=== PATIENT | female | born 1990 | race Caucasian/White ===

== ENCOUNTER 2017-10-01 14:22 | Emergency (ER) | payer OTHER ==
--- OUTSIDE RECORDS SUMMARY | 2017-10-01 14:25 | XMS REPORT | Clinical Summary ---
:1990 Author Organization [facility] Address [address] [place] [address] Phone Care Team Providers Name Role Phone Unavailable Primary Care Provider Unavailable Allergies Active Allergy Reactions Severity Noted Date Comments Adhesive 01/26/2017 Naproxen 01/26/2017 Current Medications Prescription Sig. Disp. Refills Start Date End Date Status traMADol (ULTRAM) 50 Take 1 tablet 20 tablet 0 01/26/2017 02/05/2017 mg tablet (50 mg total) by mouth every 6 (six) hours as needed for Pain for up to 10 days. Max Daily Amount: 200 mg LORazepam (ATIVAN) 1 Take 1 tablet (1 20 tablet 0 01/26/2017 02/05/2017 MG tablet mg total) by mouth 3 (three) times daily as needed for Anxiety for up to 10 days. Max Daily Amount: 3 mg Active Problems Not on file Encounters Date Type Specialty Care Team Description 01/26/2017 Emergency Emergency Medicine Geno, Will, DO Anxiety disorder, unspecified type (Primary Dx);Atypical chest pain;Migraine without aura and without status migrainosus, not intractable;Tachycardia after 09/30/2016 Social History Tobacco Use Types Packs/Day Years Used Date Never Smoker Smokeless Tobacco: Never Used Alcohol Use Drinks/Week oz/Week Comments Yes Sex Assigned at Date Recorded Not on file Last Filed Vital Signs Vital Sign Reading Time Taken Blood Pressure 149/96 01/26/2017 2:56 AM DEVELOPMENT ADMINISTRATOR Pulse 103 01/26/2017 2:56 AM DEVELOPMENT ADMINISTRATOR Temperature 36.8 C (98.2 F) 01/26/2017 2:56 AM DEVELOPMENT ADMINISTRATOR Respiratory Rate 18 01/26/2017 2:56 AM DEVELOPMENT ADMINISTRATOR Oxygen Saturation 100% 01/26/2017 2:56 AM DEVELOPMENT ADMINISTRATOR Inhaled Oxygen Concentration - - Weight 136.1 kg (300 lb) 01/26/2017 12:29 AM DEVELOPMENT ADMINISTRATOR Height - - Body Mass Index - - Plan of Treatment Not on file Results ED ECG Interpretation (01/26/2017 6:33 AM) Yannick Woodward DO 01/26/20176:33 AM ECG/EKG Interpretation Date/Time: 01/26/2017 12:36 AM Performed by: YANNICK COOPER Authorized by: YANNICK COOPER The ECG was interpreted by ED physician. This ECG was not compared with previous ECG(s).The ECG is interpreted as sinus tachycardia. Rate is tachycardic. Heart rate is [address] segments normal. T waves normal. Clinical Impression: non-specific ECGECG reviewed and does not meet STEMI criteria. XR chest 2 views (01/26/2017 1:20 AM) Specimen Performing Laboratory [facility] Narrative FINAL REPORT EXAMINATION: 2 VIEW CHEST CLINICAL INDICATION: CHEST PAIN IMPRESSION: No comparison studies are available. No evidence of focal lung consolidation, pulmonary edema or pleural effusion. The heart size is normal. Mediastinal contours are sharp. No evidence of an acute osseous abnormality or pneumothorax. Signed: Connie Betancourt MD Report Verified Date/Time:01/26/2017 01:20:26 Reading Location: [address] Reading Room Procedure Note Interface, External Ris In - 01/26/2017 1:22 AM DEVELOPMENT ADMINISTRATOR FINAL REPORT EXAMINATION: 2 VIEW CHEST CLINICAL INDICATION: CHEST PAIN IMPRESSION: No comparison studies are available. No evidence of focal lung consolidation, pulmonary edema or pleural effusion. The heart size is normal. Mediastinal contours are sharp. No evidence of an acute osseous abnormality or pneumothorax. Signed: Connie Betancourt MD Report Verified Date/Time: 01/26/2017 01:20:26 Reading Location: [address] Reading Room brain without IV contrast (01/26/2017 1:20 AM) Specimen Performing Laboratory [facility] Narrative FINAL REPORT EXAMINATIONNONCONTRAST HEAD CT SCAN CLINICAL HISTORY:Acute headache COMPARISON CT: None EPISODE OF CARE: Initial TECHNIQUE: Axial tomographic images were obtained through the brain from the vertex to the skull base without intravenous contrast. The exam was performed according to our departmental dose optimization program which includes automated exposure control, adjustment of the mA and/or kV according to patient's size and/or use of iterative reconstructive technique. FINDINGS: No evidence of acute intracranial hemorrhage, mass effect, cerebral edema, midline shift, hydrocephalus or abnormal extra-axial fluid collection. The visualized orbits are unremarkable. Mild mucosal thickening and possibly trace fluid are noted in the anterior ethmoid air cells and the frontal sinuses. The visualized sphenoid air cells, maxillary sinuses, tympanic cavities and mastoid air cells are well pneumatized. The mandibular condyles project anatomically. IMPRESSION: No specific evidence of an acute intracranial process. Mild sinus disease, chronicity indeterminate. If there is persistent clinical concern, consider MRI for further evaluation. Signed: Connie Betancourt MD Report Verified Date/Time:01/26/2017 01:23:17 Reading Location: [address] Reading Room Procedure Note Interface, External Ris In - 01/26/2017 1:25 AM DEVELOPMENT ADMINISTRATOR FINAL REPORT EXAMINATION NONCONTRAST HEAD CT SCAN CLINICAL HISTORY:Acute headache COMPARISON CT: None EPISODE OF CARE: Initial TECHNIQUE: Axial tomographic images were obtained through the brain from the vertex to the skull base without intravenous contrast. The exam was performed according to our departmental dose optimization program which includes automated exposure control, adjustment of the mA and/or kV according to patient's size and/or use of iterative reconstructive technique. FINDINGS: No evidence of acute intracranial hemorrhage, mass effect, cerebral edema, midline shift, hydrocephalus or abnormal extra-axial fluid collection. The visualized orbits are unremarkable. Mild mucosal thickening and possibly trace fluid are noted in the anterior ethmoid air cells and the frontal sinuses. The visualized sphenoid air cells, maxillary sinuses, tympanic cavities and mastoid air cells are well pneumatized. The mandibular condyles project anatomically. IMPRESSION: No specific evidence of an acute intracranial process. Mild sinus disease, chronicity indeterminate. If there is persistent clinical concern, consider MRI for further evaluation. Signed: Connie Betancourt MD Report Verified Date/Time: 01/26/2017 01:23:17 Reading Location: [address] Reading Room Rapid Troponin I (01/26/2017 1:05 AM) Component Value Ref Range Rapid Troponin I <0.05 <0.05 ng/mL Specimen Performing Laboratory Blood [facility] [id number] [place] [id number] CBC with platelet count + automated diff (01/26/2017 1:05 AM) Component Value Ref Range WBC 12.4 (H) 4.0 - 10.0 10e3/L RBC 4.78 4.00 - 5.00 10e6/L Hemoglobin 13.8 12.0 - 15.0 g/dL Hematocrit 43.5 36.0 - 45.0 % MCV 91.0 82.0 - 99.0 fL MCH 28.9 27.0 - 33.0 pg MCHC 31.8 (L) 32.0 - 36.0 g/dL RDW 12.5 10.3 - 14.2 % Platelets 366 150 - 430 10e3/L MPV 7.7 6.5 - 10.5 fL % Neutros 66 % % Lymphs 25 % % Monos 6 % % Eos 2 % % Baso 1 % # Neutros 8.13 (H) 1.80 - 8.00 10e3/L # Lymphs 3.08 1.48 - 4.50 10e3/L # Monos 0.77 0.00 - 1.30 10e3/L # Eos 0.30 0.00 - 0.50 10e3/L # Baso 0.10 0.00 - 0.20 10e3/L Specimen Performing Laboratory Blood [facility] [id number] [place] [id number] D-dimer, quantitative (01/26/2017 1:05 AM) Component Value Ref Range D-Dimer, Quant 0.21 <0.50 MG/L FEU Specimen Performing Laboratory Blood [facility] [id number] [place] [id number] Narrative REGARDING D-DIMER RESULTS: Results of this D-Dimer test should always be interpreted in conjunction with the patient's medical history, clinical presentation and other findings. DVT clinical diagnosis should not be based on the results of INNOVANCE D-Dimer alone. CBC with platelet count + automated diff (01/26/2017 1:05 AM) Specimen Performing Laboratory Blood Narrative The following orders were created for panel order CBC with platelet count + automated diff. Procedure Abnormality Status --------- ------ CBC with platelet count ...[[id number]]AbnormalFinal result Please view results for these tests on the individual orders. Basic Metabolic Panel (01/26/2017 1:05 AM) Component Value Ref Range Sodium 141 135 - 148 meq/L Potassium 3.9 3.6 - 5.5 meq/L Chloride 104 98 - 106 meq/L CO2 26 24 - 32 meq/L BUN 11 10 - 26 mg/dL Creatinine 0.94 0.50 - 1.20 mg/dL Glucose 132 (H) 70 - 110 mg/dL Calcium 10.0 8.5 - 10.5 mg/dL EGFR 70Comment: INSUFFICIENT CLINICAL DATA TO CALCULATE mL/min/1.73 sq m ESTIMATED GFR. Specimen Performing Laboratory Blood [facility] [address] [place] [address] ECG 12 lead (01/26/2017 12:36 AM) Specimen Performing Laboratory GE MUSE Narrative Ventricular Rate 110 BPM Atrial Rate 110 BPM P-R Interval 186 ms QRS Duration 84 ms Q-T Interval 304 ms QTC Calculation(Bazett) 411 ms P Wheelwright 69 degrees R Wheelwright 74 degrees T Wheelwright 59 degrees Sinus tachycardia Otherwise normal ECG No previous ECGs available Confirmed by MD CARDOZA JOSEPH P ([id number]) on 01/26/2017 7:45:30 AM Procedure Note Interface, External Ris In - 01/26/2017 7:45 AM DEVELOPMENT ADMINISTRATOR Ventricular Rate 110 BPM Atrial Rate 110 BPM P-R Interval 186 ms QRS Duration 84 ms Q-T Interval 304 ms QTC Calculation(Bazett) 411 ms P Wheelwright 69 degrees R Wheelwright 74 degrees T Wheelwright 59 degrees Sinus tachycardia Otherwise normal ECG No previous ECGs available Confirmed by MD CARDOZA JOSEPH P ([id number]) on 01/26/2017 7:45:30 AM after 09/30/2016
--- OUTSIDE RECORDS SUMMARY | 2017-10-01 14:25 | XMS REPORT ---
:1990 Author Organization [facility] Address [address] [place] [address] Care Team Providers Name Role Phone ALLISON, WILL Unavailable Unavailable Problems This patient has no known problems. Allergies, Adverse Reactions, Alerts This patient has no known allergies or adverse reactions. Medications This patient has no known medications. Results Test Description Test Time Test Comments Text Results Atomic Results Result Comments D-DIMER 2017-01-26 01:32:00 Test Item Value Reference Range Comments D-DIMER QUANTITATIVE (SANJEEV) (test gzck=091) 0.21 MG/L FEU <0.50 REGARDING D-DIMER RESULTS: Results of this D-Dimer test should always be interpreted in conjunction with the patient's medical history, clinical presentation and other findings. DVT clinical diagnosis should not be based on the results of INNOVANCE D-Dimer alone.RAPID TROPONIN [id number] 01:30:00 Test Item Value Reference Range Comments RAPID TROPONIN I (MARYBELAKER) (test voyn=1424) < ng/mL <0.05 CT, BRAIN, WITHOUT [id number] 01:23:00FINAL REPORT EXAMINATION NONCONTRAST HEAD CT SCAN CLINICAL HISTORY:Acute headache COMPARISON CT: None EPISODE OF CARE: Initial TECHNIQUE: Axial tomographic images were obtained through the brain from the vertex to the skull base without intravenous contrast. The exam was performed according to our departmental dose optimization program which includes automated exposure control , adjustment of the mA and/or kV according to patient's size and/or use of iterative reconstructivetechnique. FINDINGS: No evidence of acute intracranial hemorrhage, [...] MRI for further evaluation. Signed: Connie Betancourt Verified Date/Time: 01/26 01:23:17 Reading Location: [address] Reading Room BASIC METABOLIC [id number] 01:21:00 Test Item Value Reference Range Comments SODIUM (BEAKER) (test 141 meq/L 135-148 bbif=023) POTASSIUM (BEAKER) (test 3.9 meq/L 3.6-5.5 gynz=215) CHLORIDE (BEAKER) (test 104 meq/L 98-106 xsve=716) CO2 (BEAKER) (test 26 meq/L 24-32 extg=462) BLOOD UREA NITROGEN 11 mg/dL 10-26 (BEAKER) (test pgqt=983) CREATININE (BEAKER) 0.94 mg/dL 0.50-1.20 (test pxko=304) GLUCOSE RANDOM (BEAKER) 132 mg/dL 70-110 (test dghy=490) CALCIUM (BEAKER) (test 10.0 mg/dL 8.5-10.5 jfvn=624) EGFR (BEAKER) (test 70 mL/min/1.73 sq m INSUFFICIENT CLINICAL DATA hgsk=0430) TO CALCULATE ESTIMATED GFR. RAD, CHEST, 2 [id number] 01:20:00Reason for exam:->HEADACHEReason for exam:->DIZZINESSReason for exam:->CHEST PAINReason forexam:-> HYPERTENSIONShould this be performed at the bedside?->NoIs the patient ?->NoFINAL REPORT EXAMINATION: 2 VIEW CHEST CLINICAL INDICATION: CHEST PAIN IMPRESSION: No comparison studies are available. No evidence of focal lung consolidation, pulmonary edema or pleural effusion. The heart size is normal. Mediastinal contours are sharp. No evidence of an acuteosseous abnormality or pneumothorax. Signed: Connie Betancourt Verified Date/Time: 01/26/2017 01:20:26 Reading Location: [address] Reading Room Electronically signed by: CONNIE GIRON M.D. on 02/2017 01:20 AMCBC W/PLT COUNT & AUTO [id number] 01:18:00 Test Item Value Reference Range Comments WHITE BLOOD CELL COUNT (BEAKER) (test hgjo=960) 12.4 10e3/ L 4.0-10.0 RED BLOOD CELL COUNT (BEAKER) (test gtjq=861) 4.78 10e6/ L 4.00-5.00 HEMOGLOBIN (BEAKER) (test fvmo=117) 13.8 g/dL 12.0-15.0 HEMATOCRIT (BEAKER) (test gjea=096) 43.5 % 36.0-45.0 MEAN CORPUSCULAR VOLUME (BEAKER) (test 91.0 fL 82.0-99.0 revc=919) MEAN CORPUSCULAR HEMOGLOBIN (BEAKER) (test 28.9 pg 27.0-33.0 unyn=544) MEAN CORPUSCULAR HEMOGLOBIN CONC (BEAKER) (test 31.8 g/dL 32.0-36.0 vkuf=715) RED CELL DISTRIBUTION WIDTH (BEAKER) (test 12.5 % 10.3-14.2 blwe=663) PLATELET COUNT (BEAKER) (test dhcs=699) 366 10e3/ L 150-430 MEAN PLATELET VOLUME (BEAKER) (test edcu=498) 7.7 fL 6.5-10.5 NEUTROPHILS RELATIVE PERCENT (BEAKER) (test 66 % cffv=947) LYMPHOCYTES RELATIVE PERCENT (BEAKER) (test 25 % ybdo=864) MONOCYTES RELATIVE PERCENT (BEAKER) (test 6 % wguc=618) EOSINOPHILS RELATIVE PERCENT (BEAKER) (test 2 % butx=290) BASOPHILS RELATIVE PERCENT (BEAKER) (test 1 % zrdp=072) NEUTROPHILS ABSOLUTE COUNT (BEAKER) (test 8.13 10e3/ L 1.80-8.00 dcua=378) LYMPHOCYTES ABSOLUTE COUNT (BEAKER) (test 3.08 10e3/ L 1.48-4.50 blbh=879) MONOCYTES ABSOLUTE COUNT (BEAKER) (test 0.77 10e3/ L 0.00-1.30 mpug=417) EOSINOPHILS ABSOLUTE COUNT (BEAKER) (test 0.30 10e3/ L 0.00-0.50 zefd=614) BASOPHILS ABSOLUTE COUNT (BEAKER) (test 0.10 10e3/ L 0.00-0.20 atqu=335)
[2017-10-01 16:04] LABS: Urine Blood TRACE (NEG); Urine Glucose NEGATIVE (NEG); Urine Protein TRACE (NEG); Urine Specific Gravity >1.030 (1.005-1.030)
[2017-10-01 16:06] LABS: Urine Bacteria <20 /HPF (<20); Urine Culture Reflex Order NOT NEEDED; Urine Mucus 2+ /HPF (NONE SEEN); Urine RBC <5 /HPF (NONE SEEN)
[2017-10-01] MEDS ORDERED: KETOROLAC 30 MG/ML INJ ONE (16:24)
[2017-10-01] MEDS ORDERED: ONDANSETRON 4 MG (ODT) TAB ONE ×2 (16:24→18:14)
[2017-10-01] MEDS ORDERED: FENTANYL CITR 100 MCG/2 ML ONE ×2 (16:24→19:15)
--- NOTE | 2017-10-01 17:15 | RAD REPORT ---
EXAM DESCRIPTION: MRI - Lumbar Spine Wo Shen - 10/01/2017 5:02 pm CLINICAL HISTORY: Back pain radiating to the left lower extremity, numbness and tingling of the left foot COMPARISON: None. TECHNIQUE: Sagittal T1-weighted, T2-weighted and T2-STIR weighted sequences were obtained. Axial T1 -weighted and heavily T2-weighted sequenceswere obtained through the lumbar disc levels. FINDINGS: Lumbar bodies are normal in height and alignment. No suspicious marrow signal. Patient bhardwaj s incidental small benign hemangiomas in the T12-L3 bodies. No paraspinal masses. Conus is normal with no clumping or thickening of the cauda equina. T12-L1 level: No significant findings. L1-2 level: No significant findings. L2-3 level: No significant findings. L3-4 level: No significant findings. L4-5 level: No significant findings. L5-S1 level: No significant findings. No pars defects identified. No far lateral extraforaminal disc changes. Imaged portions of the parasp inal musculature show no suspicious findings. IMPRESSION: No disc herniation, disc bulge or other suspicious finding. No abnormality seen to expla in the patient's left lower leg radicular symptoms.
--- NOTE | 2017-10-01 17:58 | ER ---
Nurse's Notes [facility] Emergency Department Name: Kimberly Handley Age: 27 yrs Sex: Female : 1990 Arrival Date: 10/01/2017 Time: 14:29 Bed 20 Private MD: Out, [facility] Diagnosis: Acute Left Hip Pain Presentation: 10/01 14:41 Presenting complaint: Patient states: Severe left hip pain and urinary incontinence x 5 hb days. Hx of Ehler-Danlos Syndrome, recently seen by pain management for hip pain, on Percocet, Tramadol, Robaxin. Transition of care: patient was not received from another setting of care. Onset of symptoms was September 27, 2017. Risk Assessment: Do you want to hurt yourself or someone else? Patient reports no desire to harm self or others. Initial Sepsis Screen: Does the patient meet any 2 criteria? No. Patient's initial sepsis screen is negative. Does the patient have a suspected source of infection? No. Patient's initial sepsis screen is negative. 14:41 Method Of Arrival: Ambulatory hb 14:41 Acuity: MARTÍNEZ 3 hb 15:37 Care prior to arrival: None. 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 - Social history:: Smoking status: Patient/guardian denies using tobacco. - Ebola Screening: : Patient negative for fever greater than or equal to 101.5 degrees Fahrenheit, and additional compatible Ebola Virus Disease symptoms Patient denies exposure to infectious person Patient denies travel to an Ebola-affected area in the 21 days before illness onset No symptoms or risks identified at this time. Screenin:37 Abuse screen: Denies threats or abuse. Denies injuries from another. Nutritional ed1 screening: No deficits noted. Tuberculosis screening: No symptoms or risk factors identified. Fall Risk No fall in past 12 months (0 pts). Secondary diagnosis (15 points) impaired mobility, No IV (0 pts). Ambulatory Aid- Crutches/Cane/Walker (15 pts). Gait- Weak (10 pts.). Mental Status- Oriented to own ability (0 pts). Total Morgan Fall Scale indicates Low Risk Score (25-44 pts). Fall prevention measures have been instituted. Side Rails Up X 2 Frequent Obs/Assesments occuring Family Present and informed to notify staff if they need to leave bedside As available Patient and Family Educated on Fall Prevention Program and strategies. Assessment: 15:37 General: Appears uncomfortable, Behavior is calm, cooperative. Pain: Complains of pain ed1 in generalized Pain currently is 10 out of 10 on a pain scale. Quality of pain is described as aching, Pain began 2-3 days ago. Is continuous. Neuro: Level of Consciousness is awake, alert, obeys commands, Oriented to person, place, time, situation, Reports dizziness, since yesterday a syncopal episode. Cardiovascular: Denies chest pain, Heart tones S1 S2 present. Respiratory: Airway is patent Respiratory effort is even, unlabored, Respiratory pattern is regular, symmetrical, Breath sounds are clear bilaterally. GI: No signs and/or symptoms were reported involving the gastrointestinal system. : Reports incontinence, since yesterday. EENT: No signs and/or symptoms were reported regarding the EENT system. Derm: Skin is pink, warm \T\ dry. Musculoskeletal: Circulation, motion, and sensation intact. 16:40 Reassessment: I agree with previous assessment. hb 17:28 Reassessment: Patient appears in no apparent distress at this time. No changes from ed1 previously documented assessment. Patient and/or family updated on plan of care and expected duration. Pain level reassessed. Patient is alert, oriented x 3, equal unlabored respirations, skin warm/dry/pink. Patient states symptoms have not improved. 18:19 Reassessment: Pt's requested to speak with provider in regards results. Kavya ed1 said she was not going to speak to the patients because she already had spoken with the patient and she was going home. I attepmted to discharge the patient and the patient and her demanded to speak to a doctor in regards to the MRI results. I notified Yesenia, charge nurse and Dr. Wilde. 20:21 Reassessment: Patient appears in no apparent distress at this time. Patient and/or ed1 family updated on plan of care and expected duration. Pain level reassessed. Patient is alert, oriented x 3, equal unlabored respirations, skin warm/dry/pink. Patient states feeling better. Patient states symptoms have improved. Vital Signs: 14:44 BP 130 / 92; Pulse 85; Resp 16; Temp 98.3; Pulse Ox 100% on R/A; Pain 10/10; hb 17:28 BP 138 / 86; Pulse 63; Resp 20; Pulse Ox 98% on R/A; Pain 9/10; ed1 20:21 BP 129 / 86; Pulse 84; Resp 17; Pulse Ox 100% on R/A; Pain 9/10; ed1 ED Course: 14:29 Patient arrived in ED. sb2 14:29 Out, [facility] is Private Physician. sb2 14:44 Triage completed. hb 14:44 Arm band placed on left wrist. hb 14:49 [facility]avya Wilson FNP-C is [facility]. snw 14:49 Christiano Wilde MD is Attending Physician. snw 15:16 Renu Eckert LVN is Primary Nurse. ed1 15:37 Patient has correct armband on for positive identification. Bed in low position. Call ed1 light in reach. Side rails up X2. Adult w/ patient. Pulse ox on. NIBP on. 15:40 Awaiting: MRI. ed1 16:34 Patient moved to MRI via wheelchair. ed1 16:45 MRI Lumbar Spine wo Con In Process Unspecified. EDMS 17:01 MRI completed. Patient tolerated well. Patient moved back from MRI. ka 18:48 Urine Microscopic Only Sent. ed1 18:52 Low Extremity Wo Cont In Process Unspecified. EDMS 19:00 Missed attempt(s): 22 gauge in left hand. fc 19:10 Inserted saline lock: 22 gauge in left antecubital area, using aseptic technique. fc 19:43 Anival Sutherland MD is Referral Physician. wa 20:21 No provider procedures requiring assistance completed. IV discontinued, intact, ed1 bleeding controlled, No redness/swelling at site. Pressure dressing applied. Administered Medications: 16:31 Drug: fentaNYL (PF) 50 mcg Route: IM; Site: right gluteus; ed1 17:48 Follow up: Response: No adverse reaction; Pain is decreased ed1 16:31 Drug: Zofran 4 mg Route: PO; ed1 17:49 Follow up: Response: No adverse reaction ed1 16:32 Drug: TORadol 60 mg Route: IM; Site: right gluteus; ed1 17:47 Follow up: Response: No adverse reaction; Pain is decreased ed1 18:29 Not Given (Other Intervention Used): Kerrick 10 mg-325 mg 1 tabs PO once ed1 18:30 Not Given (Other Intervention Used): Zofran 4 mg PO once ed1 19:18 Drug: Decadron - Dexamethasone 10 mg Route: IVP; Site: left antecubital; bb 20:23 Follow up: Response: No adverse reaction ed1 19:18 Drug: Zofran 2 mg Route: IVP; Site: left antecubital; bb 20:23 Follow up: Response: Nausea is decreased ed1 19:18 Drug: fentaNYL (PF) 75 mcg Route: IVP; Site: left antecubital; bb 20:24 Follow up: Response: Pain is decreased ed1 Outcome: 17:57 Discharge ordered by . snarabella 19:46 Discharge ordered by . wa 20:21 Discharged to home ambulatory, with crutches. ed1 20:21 Condition: good 20:21 Discharge instructions given to patient, Instructed on discharge instructions, follow up and referral plans. medication usage, Demonstrated understanding of instructions, follow-up care, medications, Prescriptions given X 2. 20:24 Patient left the ED. ed1 Signatures: Dispatcher [employer] EDMS Kavya Wilson, COMMERCIAL SALES REPRESENTATIVE-C COMMERCIAL SALES REPRESENTATIVE-Csnw Millie Medina RN RN fc Ballard, Brenda, RN RN bb Riggs, Erika, GUM MIXER GUM MIXER ed1 Ana Andrews Heather, RN RN Christiano Wilde MD MD wa Billeau, Sheri sb2
--- NOTE | 2017-10-01 17:58 | EDPHYS ---
Physician Documentation [facility] Name: Kimberly Handley Age: 27 yrs Sex: Female : 1990 Arrival Date: 10/01/2017 Time: 14:29 Bed 20 Private MD: Out, [facility] ED Physician Christiano Wilde HPI: 10/01 17:04 This 27 yrs old Female presents to ER via Ambulatory with complaints of Hip snw Pain. 17:04 The patient or guardian reports decreased range of motion, pain, weakness. that snw occurred at home, sustained from a chronic condition, unknown reason, There is no obvious deformity, The patient is able to ambulate with assistance. The patient is able to bear partial body weight. There is no radiation of the patient's discomfort. The complaints affect the left lower back and left gluteus fely. Onset: The symptoms/episode began/occurred 5 day(s) ago. Severity of symptoms: At their worst the symptoms were severe. The patient has experienced a previous episode, but today's symptoms are worse. It is unknown whether or not the patient has recently seen a physician. Pt has hx of MURRAY, Ehler-Danlos, and Interstitial cystitis. 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 - Social history:: Smoking status: Patient/guardian denies using tobacco. - Ebola Screening: : Patient negative for fever greater than or equal to 101.5 degrees Fahrenheit, and additional compatible Ebola Virus Disease symptoms Patient denies exposure to infectious person Patient denies travel to an Ebola-affected area in the 21 days before illness onset No symptoms or risks identified at this time. ROS: 17:04 Constitutional: Negative for fever, chills, and weight loss, Eyes: Negative for injury, snw pain, redness, and discharge, ENT: Negative for injury, pain, and discharge, Neck: Negative for injury, pain, and swelling, Cardiovascular: Negative for chest pain, palpitations, and edema, Respiratory: Negative for shortness of breath, cough, wheezing, and pleuritic chest pain, Abdomen/GI: Negative for abdominal pain, nausea, vomiting, diarrhea, and constipation, Back: Negative for injury and pain, Skin: Negative for injury, rash, and discoloration. 17:04 : Positive for injury or acute deformity, small amounts, bladder incontinence 17:04 MS/extremity: Positive for injury or acute deformity, decreased range of motion, pain, paresthesias, tenderness, tingling, of the left hip. Exam: 17:02 Head/Face: Normocephalic, atraumatic. Eyes: Pupils equal round and reactive to light, snw extra-ocular motions intact. Lids and lashes normal. Conjunctiva and sclera are non-icteric and not injected. Cornea within normal limits. Periorbital areas with no swelling, redness, or edema. ENT: Nares patent. No nasal discharge, no septal abnormalities noted. Tympanic membranes are normal and external auditory canals are clear. Oropharynx with no redness, swelling, or masses, exudates, or evidence of obstruction, uvula midline. Mucous membranes moist. Neck: Trachea midline, no thyromegaly or masses palpated, and no cervical lymphadenopathy. Supple, full range of motion without nuchal rigidity, or vertebral point tenderness. No Meningismus. Chest/axilla: Normal chest wall appearance and motion. Nontender with no deformity. No lesions are appreciated. Cardiovascular: Regular rate and rhythm with a normal S1 and S2. No gallops, murmurs, or rubs. Normal PMI, no JVD. No pulse deficits. Respiratory: Lungs have equal breath sounds bilaterally, clear to auscultation and percussion. No rales, rhonchi or wheezes noted. No increased work of breathing, no retractions or nasal flaring. Abdomen/GI: Soft, non-tender, with normal bowel sounds. No distension or tympany. No guarding or rebound. No evidence of tenderness throughout. Back: No spinal tenderness. No costovertebral tenderness. Full range of motion. Skin: Warm, dry with normal turgor. Normal color with no rashes, no lesions, and no evidence of cellulitis. Neuro: Awake and alert, GCS 15, oriented to person, place, time, and situation. Cranial nerves II-XII grossly intact. Motor strength 5/5 in all extremities. Sensory grossly intact. Cerebellar exam normal. Normal gait. 17:02 Constitutional: The patient appears alert, anxious, obese, uncomfortable. 17:02 Musculoskeletal/extremity: ROM: limited passive range of motion, Circulation is intact in all extremities. Severe pain noted. Tingling of extremity. decreased sensation, severe pain in hip, incontinence. Vital Signs: 14:44 BP 130 / 92; Pulse 85; Resp 16; Temp 98.3; Pulse Ox 100% on R/A; Pain 10/10; hb 17:28 BP 138 / 86; Pulse 63; Resp 20; Pulse Ox 98% on R/A; Pain 9/10; ed1 20:21 BP 129 / 86; Pulse 84; Resp 17; Pulse Ox 100% on R/A; Pain 9/10; ed1 MDM: 15:14 Patient medically screened. snw 17:01 Data reviewed: vital signs, nurses notes. Data interpreted: Pulse oximetry: on room air snw is 100 %. Interpretation: normal. Counseling: I had a detailed discussion with the patient and/or guardian regarding: the historical points, exam findings, and any diagnostic results supporting the discharge/admit diagnosis, the presence of at least one elevated blood pressure reading (>120/80) during this emergency department visit, lab results, radiology results. Special discussion: awaiting MRI results. ED course: Pt to MRI in [place]. 19:40 Differential diagnosis: hip fracture, arthritis, strain. Test interpretation: by ED wa physician or midlevel provider: MRI spine: no acute process. CT left hip: no acute process. . Response to treatment: the patient's symptoms have markedly improved after treatment. Special discussion: will refer to ortho for further eval. . 10/01 15:25 Order name: Urine Microscopic Only snw 10/01 15:26 Order name: Urine Microscopic Only; Complete Time: 16:11 EDMS 10/01 15:24 Order name: MRI Lumbar Spine wo Con; Complete Time: 17:19 snw 10/01 15:56 Order name: Urine Dipstick--Ancillary (enter results); Complete Time: 16:11 bd 10/01 15:56 Order name: Urine --Ancillary (enter results); Complete Time: 16:11 bd 10/01 18:36 Order name: Low Extremity Wo Cont; Complete Time: 19:30 EDMS 10/01 15:25 Order name: Urine Test (obtain specimen); Complete Time: 15:37 snw 10/01 15:25 Order name: Urine Dipstick-Ancillary (obtain specimen); Complete Time: 15:37 snw Administered Medications: 16:31 Drug: fentaNYL (PF) 50 mcg Route: IM; Site: right gluteus; ed1 17:48 Follow up: Response: No adverse reaction; Pain is decreased ed1 16:31 Drug: Zofran 4 mg Route: PO; ed1 17:49 Follow up: Response: No adverse reaction ed1 16:32 Drug: TORadol 60 mg Route: IM; Site: right gluteus; ed1 17:47 Follow up: Response: No adverse reaction; Pain is decreased ed1 18:29 Not Given (Other Intervention Used): Asotin 10 mg-325 mg 1 tabs PO once ed1 18:30 Not Given (Other Intervention Used): Zofran 4 mg PO once ed1 19:18 Drug: Decadron - Dexamethasone 10 mg Route: IVP; Site: left antecubital; bb 20:23 Follow up: Response: No adverse reaction ed1 19:18 Drug: Zofran 2 mg Route: IVP; Site: left antecubital; bb 20:23 Follow up: Response: Nausea is decreased ed1 19:18 Drug: fentaNYL (PF) 75 mcg Route: IVP; Site: left antecubital; bb 20:24 Follow up: Response: Pain is decreased ed1 Disposition: 10/01/17 19:46 Discharged to Home. Impression: Acute Left Hip Pain. - Condition is Stable. - Discharge Instructions: Hip Pain. - Prescriptions for Asotin 5- 325 mg Oral Tablet - take 1 tablet by ORAL route every 6 hours As needed; 20 tablet. Zofran 4 mg Oral Tablet - take 1 tablet by ORAL route every 12 hours As needed; 15 tablet. - Medication Reconciliation Form, Thank You Letter, Antibiotic Education, Prescription Opioid Use form. - Follow up: Anival Sutherland MD; When: 2 - 3 days; Reason: Recheck today's complaints. - Problem is new. - Symptoms have improved. - Notes: take medicines as prescribed. follow up with the orthopedist as discussed Addendum: 10/03/2017 20:01 Co-signature as Attending Physician, Christiano Wilde MD I agree with the assessment and w a plan of care. Signatures: Dispatcher [employer] EDMS Kavya Wilson, WINDOWS DESKTOP ENGINEER-C WINDOWS DESKTOP ENGINEER-Csnw Fern Smart, RN RN bb Renu Eckert, SOLAR INSTALLATION CREW SUPERVISOR SOLAR INSTALLATION CREW SUPERVISOR ed1 Yesenia Baptiste, SHANON RN Christiano Wilde MD MD wa Corrections: (The following items were deleted from the chart) 10/01 18:44 17:57 10/01/2017 17:57 Discharged to Home. Impression: Radiculopathy, lumbar region; wa Pain in left hip. Condition is Stable. Forms are Medication Reconciliation Form, Thank You Letter, Antibiotic Education, Prescription Opioid Use. Follow up: Private Physician; When: 1 - 2 days; Reason: Recheck today's complaints, Continuance of care, Re-evaluation by your physician. Follow up: Emergency Department; When: As needed; Reason: Worsening of condition. [facility] 20:24 19:46 10/01/2017 19:46 Discharged to Home. Impression: Acute Left Hip Pain. Condition ed1 is Stable. Prescriptions for Zofran 4 mg Oral Tablet - take 1 tablet by ORAL route every 12 hours As needed; 20 tablet, Diclofenac Sodium 75 mg Oral Tablet Sustained Release - take 1 tablet by ORAL route 2 times per day; 30 tablet, orphenadrine citrate 100 mg Oral Tablet Sustained Release - take 1 tablet by ORAL route 2 times per day As needed; 20 tablet. and Forms are Medication Reconciliation Form, Thank You Letter, Antibiotic Education, Prescription Opioid Use. Follow up: Dr. Anival Sutherland; When: 2 - 3 days; Reason: Recheck today's complaints. Problem is new. Symptoms have improved. wa
[2017-10-01] MEDS ORDERED: HYDROCODONE/APAP 10/325 TAB ONE (18:14)
--- NOTE | 2017-10-01 19:04 | RAD REPORT ---
EXAM DESCRIPTION: CT - Low Extremity Wo Cont - 10/01/2017 6:52 pm CLINICAL HISTORY: Left hip pain for 5 days COMPARISON: None. TECHNIQUE: Computed axial tomography left hip was obtained with coronal and sagittal reconstruction. All CT scans are performed using dose optimization technique as appropriate and may include automated exposure control or mA/KV adjustment according to patient size. FINDINGS: No fracture or dislocation is seen. No bony destructive lesion is noted. A significant hip joint effusion is not seen. The muscles are normal size and density. Subcutaneous tissues are unremarkable IMPRESSION: No significant abnormality is displayed
[2017-10-01] MEDS ORDERED: ONDANSETRON 4 MG/2 ML VIAL ONE (19:15)
[2017-10-01] MEDS ORDERED: DEXAMETHASONE 10 MG/ML VIAL ONE (19:15)
== END 2017-10-01 20:24 | disposition home or self-care (01) ==
LOC: ER 14:22
DX: M25.552 Pain in left hip (principal)
CPT/HCPCS: 72148; 73700; 81003; 81015; 81025; 96372; 96374; 96375; 99284; J1100; J2405; J3010

== ENCOUNTER 2017-12-01 14:04 | Emergency (ER) | payer OTHER ==
--- OUTSIDE RECORDS SUMMARY | 2017-12-01 14:07 | XMS REPORT ---
:1990 [facility] Address [address] [place] [address] Care Team Providers Name Role Phone ALLISON, WILL Unavailable Unavailable Problems This patient has no known problems. Allergies, Adverse Reactions, Alerts This patient has no known allergies or adverse reactions. Medications This patient has no known medications. Results Test Description Test Time Test Comments Text Results Atomic Results Result Comments D-DIMER 2017-01-26 01:32:00 Test Item Value Reference Range Comments D-DIMER QUANTITATIVE (SANJEEV) (test nbgb=520) 0.21 MG/L FEU <0.50 REGARDING D-DIMER RESULTS: Results of this D-Dimer test should always be interpreted in conjunction with the patient's medical history, clinical presentation and other findings. DVT clinical diagnosis should not be based on the results of INNOVANCE D-Dimer alone.RAPID TROPONIN [id number] 01:30:00 Test Item Value Reference Range Comments RAPID TROPONIN I (MARYBELAKER) (test rvha=9093) < ng/mL <0.05 CT, BRAIN, WITHOUT [id number] 01:23:00FINAL REPORT EXAMINATION NONCONTRAST HEAD CT SCAN [...] Betancourt Verified Date/Time: 01/26 01:23:17 Reading Location: [address] Reading Room BASIC METABOLIC [id number] 01:21:00 Test Item Value Reference Range Comments SODIUM (BEAKER) (test 141 meq/L 135-148 jpod=294) POTASSIUM (BEAKER) (test 3.9 meq/L 3.6-5.5 ceuy=723) CHLORIDE (BEAKER) (test 104 meq/L 98-106 jhgr=630) CO2 (BEAKER) (test 26 meq/L 24-32 funl=274) BLOOD UREA NITROGEN 11 mg/dL 10-26 (BEAKER) (test wumz=484) CREATININE (BEAKER) 0.94 mg/dL 0.50-1.20 (test kuvo=437) GLUCOSE RANDOM (BEAKER) 132 mg/dL 70-110 (test yehk=449) CALCIUM (BEAKER) (test 10.0 mg/dL 8.5-10.5 ksct=254) EGFR (BEAKER) (test 70 mL/min/1.73 sq m INSUFFICIENT CLINICAL DATA tayt=0011) TO CALCULATE ESTIMATED GFR. RAD, CHEST, 2 [id number] 01:20:00Reason for exam:->HEADACHEReason for exam:->DIZZINESSReason for exam:->CHEST [...] Betancourt Verified Date/Time: 01/26/2017 01:20:26 Reading Location: [address] Reading Room Electronically signed by: CONNIE GIRON M.D. on 02/2017 01:20 AMCBC W/PLT COUNT & AUTO [id number] 01:18:00 Test Item Value Reference Range Comments WHITE BLOOD CELL COUNT (BEAKER) (test ykox=889) 12.4 10e3/ L 4.0-10.0 RED BLOOD CELL COUNT (BEAKER) (test thav=978) 4.78 10e6/ L 4.00-5.00 HEMOGLOBIN (BEAKER) (test fugq=981) 13.8 g/dL 12.0-15.0 HEMATOCRIT (BEAKER) (test gnox=806) 43.5 % 36.0-45.0 MEAN CORPUSCULAR VOLUME (BEAKER) (test 91.0 fL 82.0-99.0 cqtj=150) MEAN CORPUSCULAR HEMOGLOBIN (BEAKER) (test 28.9 pg 27.0-33.0 idxd=238) MEAN CORPUSCULAR HEMOGLOBIN CONC (BEAKER) (test 31.8 g/dL 32.0-36.0 henz=998) RED CELL DISTRIBUTION WIDTH (BEAKER) (test 12.5 % 10.3-14.2 icyc=280) PLATELET COUNT (BEAKER) (test lnaa=020) 366 10e3/ L 150-430 MEAN PLATELET VOLUME (BEAKER) (test qtyf=009) 7.7 fL 6.5-10.5 NEUTROPHILS RELATIVE PERCENT (BEAKER) (test 66 % vuir=632) LYMPHOCYTES RELATIVE PERCENT (BEAKER) (test 25 % hmzj=872) MONOCYTES RELATIVE PERCENT (BEAKER) (test 6 % pjac=357) EOSINOPHILS RELATIVE PERCENT (BEAKER) (test 2 % qmza=785) BASOPHILS RELATIVE PERCENT (BEAKER) (test 1 % gpcs=203) NEUTROPHILS ABSOLUTE COUNT (BEAKER) (test 8.13 10e3/ L 1.80-8.00 uqal=946) LYMPHOCYTES ABSOLUTE COUNT (BEAKER) (test 3.08 10e3/ L 1.48-4.50 rkgm=900) MONOCYTES ABSOLUTE COUNT (BEAKER) (test 0.77 10e3/ L 0.00-1.30 nzuf=754) EOSINOPHILS ABSOLUTE COUNT (BEAKER) (test 0.30 10e3/ L 0.00-0.50 sgcg=822) BASOPHILS ABSOLUTE COUNT (BEAKER) (test 0.10 10e3/ L 0.00-0.20 spfd=413)
--- OUTSIDE RECORDS SUMMARY | 2017-12-01 14:07 | XMS REPORT | Clinical Summary ---
:1990 Author Organization [facility] Address [address] [place] [address] Phone Care Team Providers Name Role Phone [...] and without status migrainosus, not intractable;Tachycardia after 11/30/2016 Social History Tobacco Use Types Packs/Day Years Used Date Never Smoker Smokeless Tobacco: Never Used Alcohol Use Drinks/Week oz/Week Comments Yes Sex Assigned at Date Recorded Not on file Last Filed Vital Signs Vital Sign Reading Time Taken Blood Pressure 149/96 01/26/2017 2:56 AM OPERATIONS CONSULTANT Pulse 103 01/26/2017 2:56 AM OPERATIONS CONSULTANT Temperature 36.8 C (98.2 F) 01/26/2017 2:56 AM OPERATIONS CONSULTANT Respiratory Rate 18 01/26/2017 2:56 AM OPERATIONS CONSULTANT Oxygen Saturation 100% 01/26/2017 2:56 AM OPERATIONS CONSULTANT Inhaled Oxygen Concentration - - Weight 136.1 kg (300 lb) 01/26/2017 12:29 AM OPERATIONS CONSULTANT Height - - Body Mass Index - [...] views (01/26/2017 1:20 AM) Specimen Performing Laboratory [employer] RIS Narrative FINAL REPORT EXAMINATION: 2 VIEW CHEST CLINICAL INDICATION: CHEST PAIN IMPRESSION: No comparison studies are available. No evidence of focal lung consolidation, pulmonary edema or pleural effusion. The heart size is normal. Mediastinal contours are sharp. No evidence of an acute osseous abnormality or pneumothorax. Signed: Connie Betancourt MD Report Verified Date/Time:01/26/2017 01:20:26 Reading Location: [address] Reading Room Procedure Note Interface, External Ris In - 01/26/2017 1:22 AM OPERATIONS CONSULTANT FINAL REPORT EXAMINATION: 2 VIEW CHEST CLINICAL INDICATION: CHEST PAIN IMPRESSION: No comparison studies are available. No evidence of focal lung consolidation, pulmonary edema or pleural effusion. The heart size is normal. Mediastinal contours are sharp. No evidence of an acute osseous abnormality or pneumothorax. Signed: Connie Betancourt MD Report Verified Date/Time: 01/26/2017 01:20:26 Reading Location: [address] Reading Room brain without IV contrast (01/26/2017 1:20 AM) Specimen Performing Laboratory [employer] RIS Narrative FINAL REPORT EXAMINATIONNONCONTRAST HEAD CT [...] MD Report Verified Date/Time:01/26/2017 01:23:17 Reading Location: [address] Reading Room Procedure Note Interface, External Ris In - 01/26/2017 1:25 AM OPERATIONS CONSULTANT FINAL REPORT EXAMINATION NONCONTRAST HEAD CT SCAN [...] Report Verified Date/Time: 01/26/2017 01:23:17 Reading Location: [address] Reading Room Rapid Troponin I (01/26/2017 1:05 AM) Component Value Ref Range Rapid Troponin I <0.05 <0.05 ng/mL Specimen Performing Laboratory Blood [facility] [id number] [place] [id number] CBC with platelet count + automated diff [...] - 0.20 10e3/L Specimen Performing Laboratory Blood [facility] [id number] [place] [id number] D-dimer, quantitative (01/26/2017 1:05 AM) Component Value Ref Range D-Dimer, Quant 0.21 <0.50 MG/L FEU Specimen Performing Laboratory Blood [facility] [id number] [place] [address] Narrative REGARDING D-DIMER RESULTS: Results of this [...] Status --------- ------ CBC with platelet count ...[[id number]]AbnormalFinal result Please view results for these tests [...] ESTIMATED GFR. Specimen Performing Laboratory Blood [facility] [address] [place] [address] ECG 12 lead (01/26/2017 12:36 AM) Specimen Performing Laboratory [facility] Narrative Ventricular Rate 110 BPM Atrial Rate 110 BPM P-R Interval 186 ms QRS Duration 84 ms Q-T Interval 304 ms QTC Calculation(Bazett) 411 ms P [place] 69 degrees R [place] 74 degrees T [place] 59 degrees Sinus tachycardia Otherwise normal ECG No previous ECGs available Confirmed by MD CARDOZA JOSEPH P ([id number]) on 01/26/2017 7:45:30 AM Procedure Note Interface, External Ris In - 01/26/2017 7:45 AM OPERATIONS CONSULTANT Ventricular Rate 110 BPM Atrial Rate 110 BPM P-R Interval 186 ms QRS Duration 84 ms Q-T Interval 304 ms QTC Calculation(Bazett) 411 ms P [place] 69 degrees R [place] 74 degrees T [place] 59 degrees Sinus tachycardia Otherwise normal ECG No previous ECGs available Confirmed by MD CARDOZA JOSEPH P ([id number]) on 01/26/2017 7:45:30 AM after 11/30/2016
[2017-12-01] MEDS ORDERED: NA CHLORIDE 0.9% 1,000 ML ONE (14:40)
[2017-12-01 15:10] LABS: Absolute Lymphocytes (CBC) 2.5 K/uL (0.7-4.9); Absolute Monocytes 0.6 K/uL (0.1-1.3); Basophils % 0.5 % (0-1.3); Eosinophils % 2.2 % (0-4.4); Hematocrit 41.4 % (36.0-45.0); Lymphocytes % 21.9 % (15.3-44.8); MCH 30.9 pg (27.0-35.0); MCV 89.6 fL (80-100); MPV 8.7 fL (7.6-11.3); Monocytes % 5.2 % (3.3-12.3); RBC Red Blood Cell Count 4.62 M/uL (3.86-4.86)
--- NOTE | 2017-12-01 15:19 | RAD REPORT ---
EXAM DESCRIPTION: CT - Stone Protocol - 12/01/2017 2:52 pm CLINICAL HISTORY: Flank pain. "bladder pain" COMPARISON: No comparisons TECHNIQUE: Axial images were obtained without oral or IV contrast. Lack of contrast limits solid org an and vascular assessment. The icgip-fm-vdmw spans the entirety of the system partially obscuring uppermost abdomen and lung bases. Coronal reformatted images were obtained and reviewed. All CT scans are performed using dose optimization technique as appropriate and may include automated exposure control or mA/KV adjustment according to patient size. FINDINGS: The lower lung adams are clear. Imaged portions of the liver and spleen show no suspicious findings on non-contrast imaging. The panc reas and adrenal glands are normal. No pathologic lymphadenopathy in the abdomen or pelvis. No urinary tract stones or obstructive uropathy. No bowel obstruction, free air, free fluid or abscess. Small fat containing ventral hernia. Normal ap pendix noted. No significant bony abnormality. Hysterectomy noted. Rounded solid and cystic structure in the central pelvis anteriorly measuring 3 c m is present. Additionally, a cystic lesion is noted posteriorly measuring 5 cm, superior to the blad [place]. IMPRESSION: No urinary tract stones or obstructive uropathy. Rounded lesions in the central pelvis superior to the urinary bladder as detailed above probably rela rachele to ovarian cysts. The 3 cm anterior lesion has some solid components. Follow-up transvaginal ultr asound assessment would be recommended.
[2017-12-01] MEDS ORDERED: KETOROLAC 30 MG/ML INJ ONE (15:50)
[2017-12-01 16:33] LABS: Urine Culture Reflex Order NOT NEEDED; Urine Mucus 1+ /HPF (NONE SEEN)
[2017-12-01 16:34] LABS: Urine Bacteria <20 /HPF (<20); Urine RBC <5 /HPF (NONE SEEN)
[2017-12-01 16:36] LABS: Urine Blood TRACE (NEG); Urine Glucose NEGATIVE (NEG); Urine Protein NEGATIVE (NEG); Urine Specific Gravity >1.030 (1.005-1.030); Urine pH 5.5 (5.0-7.0)
--- NOTE | 2017-12-01 16:52 | ER ---
Nurse's Notes [facility] Name: Kimberly Handley Age: 27 yrs Sex: Female : 1990 Arrival Date: 12/01/2017 Time: 14:05 Bed 13 Private MD: Out, [facility] Diagnosis: Interstitial cystitis (chronic) Presentation: 12/01 14:21 Presenting complaint: Patient states: hx of interstitial cystitis, has been off oxybutynin 2-3 weeks and was told she needs a neurostimulator for her bladder, sees urologist at [place], has had bladder pain and trouble urinating since last night. Transition of care: patient was not received from another setting of care. Onset of symptoms was December 01, 2017. Risk Assessment: Do you want to hurt yourself or someone else? Patient reports no desire to harm self or others. Initial Sepsis Screen: Does the patient meet any 2 criteria? No. Patient's initial sepsis screen is negative. Does the patient have a suspected source of infection? No. Patient's initial sepsis screen is negative. Care prior to arrival: None. 14:21 Method Of Arrival: Ambulatory 14:21 Acuity: MARTÍNEZ 3 iw Triage Assessment: 14:15 General: Appears in no apparent distress. uncomfortable, obese, well groomed, Behavior kr2 is calm, cooperative, appropriate for age. 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 - Social history:: Smoking status: Patient/guardian denies using tobacco. - Ebola Screening: : Patient negative for fever greater than or equal to 101.5 degrees Fahrenheit, and additional compatible Ebola Virus Disease symptoms Patient denies exposure to infectious person Patient denies travel to an Ebola-affected area in the 21 days before illness onset No symptoms or risks identified at this time. Screenin:15 Abuse screen: Denies threats or abuse. Denies injuries from another. Nutritional kr2 screening: No deficits noted. Tuberculosis screening: No symptoms or risk factors identified. Fall Risk Ambulatory Aid- Crutches/Cane/Walker (15 pts). Assessment: 14:15 General: Appears in no apparent distress. uncomfortable, obese, well groomed, Behavior kr2 is calm, cooperative, appropriate for age. Pain: Complains of pain in suprapubic area Pain currently is 8 out of 10 on a pain scale. Quality of pain is described as burning, crampy, tender, Is continuous, Alleviated by medications. Neuro: Level of Consciousness is awake, alert, obeys commands, Oriented to person, place, time, situation, Appropriate for age. Cardiovascular: Capillary refill < 3 seconds in bilateral fingers. Respiratory: Airway is patent Respiratory effort is even, unlabored, Respiratory pattern is regular, symmetrical. GI: Abdomen is non-distended, obese. : Reports incontinence is normal for her. EENT: Oral mucosa is moist. Derm: Skin is intact, is healthy with good turgor, Skin is pink, warm \T\ dry. Musculoskeletal: Circulation, motion, and sensation intact. 15:15 Reassessment: Patient appears in no apparent distress at this time. Patient and/or kr2 family updated on plan of care and expected duration. Pain level reassessed. Patient is alert, oriented x 3, equal unlabored respirations, skin warm/dry/pink. 16:15 Reassessment: Patient appears in no apparent distress at this time. Patient and/or kr2 family updated on plan of care and expected duration. Pain level reassessed. Patient is alert, oriented x 3, equal unlabored respirations, skin warm/dry/pink. 17:20 Reassessment: Patient appears in no apparent distress at this time. Patient and/or kr2 family updated on plan of care and expected duration. Pain level reassessed. Patient is alert, oriented x 3, equal unlabored respirations, skin warm/dry/pink. Patient requested to see provider regarding prescriptions for discharge. Provider WHITNEY Burr notified and at patient bedside. Vital Signs: 14:26 BP 134 / 91; Pulse 115; Resp 18 S; Pulse Ox 94% on R/A; Weight 139.71 kg; Height 5 ft. iw 11 in. (180.34 cm); Pain 7/10; 16:46 BP 121 / 93; Pulse 91; Resp 16; Temp 98; Pulse Ox 99% on R/A; kr2 14:26 Body Mass Index 42.96 (139.71 kg, 180.34 cm) iw ED Course: 14:05 Patient arrived in ED. sb2 14:06 Out, of Town is Private Physician. sb2 14:15 Patient has correct armband on for positive identification. Bed in low position. Call kr2 light in reach. Side rails up X 1. Adult w/ patient. Pulse ox on. NIBP on. Door closed. Warm blanket given. Head of bed elevated. 14:22 Aminah Adams FNP-C [facility]. kb 14:22 Rafael Mohr MD is Attending Physician. kb 14:25 Triage completed. iw 14:26 Arm band placed on. iw 14:28 Elizabeth Emery, SHANON is Primary Nurse. kr2 14:46 Initial lab(s) drawn, by me, sent to lab. Inserted saline lock: 20 gauge in right dh3 antecubital area, using aseptic technique. Blood collected. 14:52 CT completed. Pt tolerated procedure poorly. Patient moved to CT via wheelchair. sj Patient moved back from CT. 14:52 CT Stone Protocol In Process Unspecified. EDMS 15:00 Straight cath inserted, using sterile technique, 15 Fr Returned clear yellow urine. kr2 Patient tolerated well. 17:20 No provider procedures requiring assistance completed. IV discontinued, intact, kr2 bleeding controlled, No redness/swelling at site. Pressure dressing applied. Administered Medications: 15:00 Drug: NS 0.9% 1000 ml Route: IV; Rate: 1000 ml; Site: right antecubital; kr2 15:54 Drug: TORadol 30 mg Route: IVP; Site: right antecubital; kr2 16:15 Follow up: Response: No adverse reaction; Pain is decreased kr2 17:25 Drug: [place] (7.5 mg-325 mg) 1 tabs Route: PO; kr2 17:30 Follow up: Response: Medication administered at discharge. kr2 Outcome: 16:52 Discharge ordered by . kb 17:25 Discharged to home ambulatory, with family. kr2 17:25 Condition: good 17:25 Discharge instructions given to patient, family, Instructed on discharge instructions, follow up and referral plans. medication usage, Demonstrated understanding of instructions, follow-up care, medications, Prescriptions given X 2. 17:30 Patient left the ED. kr2 Signatures: Dispatcher [employer] EDMS Aminah Adams FNP-C [employer]2EE JAVA DEVELOPER-CkAzalia Fuentes Irene, SHANON RN iw Lilli Lynn 3 Elizabeth Emery RN RN kr2 Hannah Harris 2
--- NOTE | 2017-12-01 16:52 | EDPHYS ---
Physician Documentation [facility] Name: Kimberly Handley Age: 27 yrs Sex: Female : 1990 Arrival Date: 12/01/2017 Time: 14:05 Bed 13 Private MD: Out, [facility] ED Physician Rafael Mohr HPI: 12/01 14:45 This 27 yrs old Female presents to ER via Ambulatory with complaints of kb BLADDER ISSUE. 14:45 The patient presents with urinary symptoms, frequency, incontinence. Onset: The kb symptoms/episode began/occurred yesterday. Modifying factors: The symptoms are alleviated by nothing, the symptoms are aggravated by urinating. Associated signs and symptoms: Pertinent positives: urinary frequency, Pertinent negatives: constipation, cramping, diarrhea, dyspareunia, dysuria, fever, hematuria, nausea, vaginal bleeding, vaginal discharge, vomiting. Severity of symptoms: At their worst the symptoms were mild, moderate, in the emergency department the symptoms are unchanged. The patient has not experienced similar symptoms in the past. The patient has not recently seen a physician. Pt states "I'm having a flare-up of interstitial cystitis." Pt states she has incontinence, urinary frequency, difficulty urinating that started last night. States symptoms are the same as they normally are when she has a flare-up. States they normally give her medications for pain management when she has a flare-up. 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 - Social history:: Smoking status: Patient/guardian denies using tobacco. - Ebola Screening: : Patient negative for fever greater than or equal to 101.5 degrees Fahrenheit, and additional compatible Ebola Virus Disease symptoms Patient denies exposure to infectious person Patient denies travel to an Ebola-affected area in the 21 days before illness onset No symptoms or risks identified at this time. ROS: 14:44 Constitutional: Negative for fever, chills, and weight loss, Cardiovascular: Negative kb for chest pain, palpitations, and edema, Respiratory: Negative for shortness of breath, cough, wheezing, and pleuritic chest pain, Abdomen/GI: Negative for abdominal pain, nausea, vomiting, diarrhea, and constipation, MS/Extremity: Negative for injury and deformity, Skin: Negative for injury, rash, and discoloration, Neuro: Negative for headache, weakness, numbness, tingling, and seizure. 14:44 : Positive for small amounts, difficulty urinating, bladder incontinence "bladder pain". Exam: 14:44 Constitutional: This is a well developed, well nourished patient who is awake, alert, kb and in no acute distress. Head/Face: Normocephalic, atraumatic. Chest/axilla: Normal chest wall appearance and motion. Nontender with no deformity. No lesions are appreciated. Cardiovascular: Regular rate and rhythm with a normal S1 and S2. No gallops, murmurs, or rubs. Normal PMI, no JVD. No pulse deficits. Respiratory: Lungs have equal breath sounds bilaterally, clear to auscultation and percussion. No rales, rhonchi or wheezes noted. No increased work of breathing, no retractions or nasal flaring. Back: No spinal tenderness. No costovertebral tenderness. Full range of motion. Skin: Warm, dry with normal turgor. Normal color with no rashes, no lesions, and no evidence of cellulitis. MS/ Extremity: Pulses equal, no cyanosis. Neurovascular intact. Full, normal range of motion. Neuro: Awake and alert, GCS 15, oriented to person, place, time, and situation. Cranial nerves II-XII grossly intact. Motor strength 5/5 in all extremities. Sensory grossly intact. Cerebellar exam normal. Normal gait. 14:44 Abdomen/GI: Inspection: abdomen appears normal, Bowel sounds: normal, in all quadrants, Palpation: soft, in all quadrants, moderate abdominal tenderness, in the suprapubic area. Vital Signs: 14:26 BP 134 / 91; Pulse 115; Resp 18 S; Pulse Ox 94% on R/A; Weight 139.71 kg; Height 5 ft. iw 11 in. (180.34 cm); Pain 7/10; 16:46 BP 121 / 93; Pulse 91; Resp 16; Temp 98; Pulse Ox 99% on R/A; kr2 14:26 Body Mass Index 42.96 (139.71 kg, 180.34 cm) iw MDM: 14:22 Patient medically screened. kb 14:44 Data reviewed: vital signs, nurses notes. Data interpreted: Pulse oximetry: on room air kb is 94 %. Interpretation: normal. 16:34 Counseling: I had a detailed discussion with the patient and/or guardian regarding: the kb historical points, exam findings, and any diagnostic results supporting the discharge/admit diagnosis, lab results, radiology results, the need for outpatient follow up, a film painter, a urologist, to return to the emergency department if symptoms worsen or persist or if there are any questions or concerns that arise at home. 12/01 14:30 Order name: CBC with Diff; Complete Time: 15:33 kb 12/01 14:30 Order name: Basic Metabolic Panel; Complete Time: 15:21 kb 12/01 14:30 Order name: Urine Culture kb 12/01 14:30 Order name: Urine Microscopic Only; Complete Time: 16:35 kb 12/01 16:32 Order name: Urine Dipstick--Ancillary (enter results); Complete Time: 16:37 bd 12/01 16:32 Order name: Urine --Ancillary (enter results); Complete Time: 16:37 bd 12/01 14:30 Order name: Urine Test (obtain specimen); Complete Time: 15:54 kb 12/01 14:30 Order name: Urine Dipstick-Ancillary (obtain specimen); Complete Time: 15:54 kb 12/01 14:30 Order name: Straight Cath - Urine; Complete Time: 15:54 kb 12/01 14:30 Order name: IV Start; Complete Time: 14:52 kb 12/01 14:33 Order name: CT Stone Protocol; Complete Time: 15:21 kb 12/01 16:34 Order name: Vital Signs; Complete Time: 16:47 kb Administered Medications: 15:00 Drug: NS 0.9% 1000 ml Route: IV; Rate: 1000 ml; Site: right antecubital; kr2 15:54 Drug: TORadol 30 mg Route: IVP; Site: right antecubital; kr2 16:15 Follow up: Response: No adverse reaction; Pain is decreased kr2 17:25 Drug: [place] (7.5 mg-325 mg) 1 tabs Route: PO; kr2 17:30 Follow up: Response: Medication administered at discharge. kr2 Disposition: 12/02 07:26 Co-signature as Attending Physician, Rafael Mohr MD I agree with the assessment and erik plan of care. Disposition: 12/01/17 16:52 Discharged to Home. Impression: Interstitial cystitis (chronic). - Condition is Stable. - Discharge Instructions: Interstitial Cystitis. - Prescriptions for Pyridium 200 mg Oral Tablet - take 1 tablet by ORAL route every 8 hours for 3 days; 9 tablet. Tramadol 50 mg Oral Tablet - take 1 tablet by ORAL route every 8 hours as needed; 12 tablet. - Medication Reconciliation Form, Thank You Letter, Antibiotic Education, Prescription Opioid Use form. - Follow up: Private Physician; When: 2 - 3 days; Reason: Recheck today's complaints, Continuance of care, Re-evaluation by your physician. Follow up: Emergency Department; When: As needed; Reason: Worsening of condition. Signatures: Dispatcher [employer] EDMS Aminah Adams, GRISELDA ROACH-Rafael Ulloa MD MD cha Williams, Irene, RN RN iw Reaves, Karey, RN RN kr2 Corrections: (The following items were deleted from the chart) 12/01 16:52 16:34 Counseling: I had a detailed discussion with the patient and/or guardian regarding: the historical points, exam findings, and any diagnostic results supporting the discharge/admit diagnosis, lab results, radiology results, the need for outpatient follow up, a urologist, to return to the emergency department if symptoms worsen or persist or if there are any questions or concerns that arise at home, 17:30 16:52 12/01/2017 16:52 Discharged to Home. Impression: Interstitial cystitis (chronic). kr2 Condition is Stable. Discharge Instructions: Interstitial Cystitis. Forms are Medication Reconciliation Form, Thank You Letter, Antibiotic Education, Prescription Opioid Use. Follow up: Private Physician; When: 2 - 3 days; Reason: Recheck today's complaints, Continuance of care, Re-evaluation by your physician. Follow up: Emergency Department; When: As needed; Reason: Worsening of condition. kb
[2017-12-01] MEDS ORDERED: HYDROCODONE/APAP 7.5/325 MG TAB ONE (17:30)
== END 2017-12-01 17:30 | disposition home or self-care (01) ==
LOC: ER 14:04
DX: N30.10 Interstitial cystitis (chronic) without hematuria (principal)
CPT/HCPCS: 36415; 51702; 74176; 76377; 80048; 81003; 81015; 81025; 85025; 87086; 87088; 96374; 99284; J7030